=== PATIENT | female | born 1980 | race Caucasian/White ===

== ENCOUNTER 2016-12-05 08:12 | Outpatient (CLI) | payer SELFPAY ==
[2016-12-05 08:35] VITALS: BP 104/79
[2016-12-05] MEDS ORDERED: LACTATED RINGERS 1,000 ML ONE (08:40)
[2016-12-05] MEDS ORDERED: D5LR 1,000 ML IV ONE (09:26)
== END 2016-12-05 11:15 | disposition home or self-care (01) ==
LOC: TRG 08:12
PROVIDERS: ATTEND Specialist
DX: O47.1 False labor at or after 37 completed weeks of gestation (principal); Z3A.39 39 weeks gestation of pregnancy
CPT/HCPCS: 59025; 82962; J7120; J7121

== ENCOUNTER 2016-12-05 18:34 | Inpatient (IN) | payer OTHER ==
[2016-12-05] MEDS ORDERED: LACTATED RINGERS 1,000 ML ONE (18:38)
--- NOTE | 2016-12-05 20:00 | History and Physical Report ---
History of Present Illness Date of examination: 12/05/16 Date of admission: 12/05/16 18:56 Chief complaint: My water broke History of present illness: Patient is a 35 year old who presents in active labor with ROM. Patient is a previous times 1, followed by a successful . Patient received care at [facility]. Past History Past Medical History: no pertinent history Past Surgical History: section Social history: - Obstetrical History Expected Date of Delivery: 12/09/16 Actual Gestation: 39 Week(s) 3 Day(s) : 3 Para: 2 Number of Living Children: 2 Medications and Allergies Allergies Allergy/AdvReac Type Severity Reaction Status Date / Time Penicillins Allergy Severe Rash Verified 12/05/16 08:19 Home Medications Medication Instructions Recorded Confirmed Last Taken Type Omeprazole [PriLOSEC] 20 mg PO QDAY 04/27/14 04/27/14 04/26/14 08:00 History PHENObarb/HYOSCY/ATROPINE/SCOP 1 tab PO QDAY 04/27/14 04/27/14 04/23/14 09:00 History [] Review of Systems All systems: negative Genitourinary: leakage of fluid, contractions - Vital Signs Vital signs: Vital Signs Pulse Pulse Ox 99 H 98 12/05/16 19:25 12/05/16 19:25 Temp Pulse Resp BP Pulse Ox 91 H 118/71 94 12/05/16 19:31 12/05/16 19:29 12/05/16 19:31 - Physical Exam Breasts: Cardiovascular: Regular rate, Normal S1, Normal S2 Lungs: Positive: Clear to auscultation, Normal air movement Abdomen: Positive: normal appearance, soft, normal bowel sounds. Negative: distention, tenderness Genitourinary (Female): Positive: normal external genitalia, normal perenium Vulva: both: normal Vagina: Positive: normal moisture. Negative: discharge Cervix: Negative: lesion, discharge Uterus: Positive: normal size, normal contour Adnexa: both: normal Anus/Rectum: Positive: normal perianal skin, heme negative. Negative: rectal mass, hemorrhoids Extremities: Deep Tendon Reflex Grade: Normal +2 - Obstetrical Cervical Dilatation: 7 Cervical Effacement Percentage: 100 station: -1 Uterine Contraction Pattern: Regular Uterine Tone Measurement Phase: Contraction Uterine Contraction Intensity: Moderate Results All other labs normal. Assessment and Plan IUP at 39.3 who presents in active labor for a . Admit for labor. AROm. Augment. Anticipate successful .
[2016-12-05] MEDS ORDERED: STADOL IV PRN (20:03)
[2016-12-05] MEDS ORDERED: ePHEDrine SULFATE IV PRN ×2 (20:03→22:03)
[2016-12-05] MEDS ORDERED: BRETHINE SUB-Q PRN (20:03)
[2016-12-05] MEDS ORDERED: SUBLIMAZE IV PRN (20:03)
[2016-12-05] MEDS ORDERED: PHENERGAN PO PRN (20:03)
[2016-12-05] MEDS ORDERED: BRETHINE IVP PRN (20:03)
[2016-12-05] MEDS ORDERED: MINERAL OIL PO PRN (20:03)
[2016-12-05 20:24] LABS: Hematocrit 35.3 % (30.3-42.9); Hemoglobin 11.1 gm/dl (10.1-14.3); Mean Corpuscular HGB Conc 32 % (30-34); Mean Corpuscular Hemoglobin 28 pg (28-32); Mean Corpuscular Volume 90 fl (79-97); Platelet Count 276 K/mm3 (140-440); Red Blood Count 3.93 M/mm3 (3.65-5.03); Red Cell Distribution Width 15.9 % (13.2-15.2)
[2016-12-05] MEDS ORDERED: PITOCin/NS 30 UNIT/500ML 30 UNITS/500 ML BAG IV SCH ×2 (21:00)
[2016-12-05] MEDS ORDERED: PITOCin/NS 20 UNIT/1000ML DRIP 20 UNITS/1,000 ML BAG IV SCH ×2 (21:00→23:45)
[2016-12-05] MEDS: LACTATED RINGERS 1,000 ML IV SCH ×2 (21:02→22:34)
[2016-12-05] MEDS ORDERED: ePHEDrine SULFATE ONE (21:04)
--- NOTE | 2016-12-05 21:35 | Event Note ---
Date: 12/05/16 Patient made change to 7 cm and has been at same dilation for past 2 hours. Patient advised of need for but patient refused. 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 Patient wants to get epidural to see if it helps with dilation.
[2016-12-05] MEDS ORDERED: NARCAN 2 MG/2 ML IV PRN (22:03)
--- NOTE | 2016-12-05 22:03 | Anesthesia Consultation ---
Anesthesia Consult and Med Hx Date of service: 12/05/16 - Airway Anesthetic Teeth Evaluation: Good ROM Head & Neck: Adequate Mental/Hyoid Distance: Adequate Mallampati Class: Class II Intubation Access Assessment: Probably Good - Pulmonary Exam CTA: Yes - Cardiac Exam Cardiac Exam: RRR - Pre-Operative Health Status ASA Pre-Surgery Classification: ASA2 Proposed Anesthetic Plan: Epidural, Spinal - Pulmonary Hx Smoking: No Hx Asthma: No COPD: No Hx Pneumonia: No - Cardiovascular System Hx Hypertension: No - Central Nervous System Hx Seizures: No Hx Psychiatric Problems: No - Endocrine Hx Renal Disease: No Hx End Stage Renal Disease: No Hx Hypothyroidism: No Hx Hyperthyroidism: No - Hematic Hx Anemia: No Hx Sickle Cell Disease: No - Other Systems Hx Alcohol Use: No Hx Obesity: Yes - Additional Comments Anesthesia Medical History Comments: + at 38.4
[2016-12-05] MEDS ORDERED: fentaNYL-BUPIV 2 MCG/ML-0.125% 200 MCG/100 ML BAG EPIDURAL SCH (23:00)
[2016-12-05] MEDS ORDERED: XYLOCAINE MPF 2% ONE (23:03)
[2016-12-05] MEDS ORDERED: BICITRA PO ONE (23:05)
[2016-12-05] MEDS ORDERED: PEPCID IV ONE (23:05)
[2016-12-05] MEDS ORDERED: REGLAN IV ONE (23:05)
--- NOTE | 2016-12-05 23:05 | Event Note ---
Date: 12/05/16 Patient still with no cervical change despite adequate contractions and now with epidural. Will proceed with .
[2016-12-05] MEDS ORDERED: ZOFRAN IV ONE (23:13)
--- NOTE | 2016-12-05 23:28 | Event Note ---
Date: 12/05/16 called due to arrest of descent, however patient is still refusing to sign consent forms despite understanding. made aware as well as the nursing field pipe lines supervisor. Per Dr. Vaughn, Cable Television Installer from [facility] de will call to speak to patient.
[2016-12-05] MEDS ORDERED: LACTATED RINGERS 1,000 ML IV SCH (23:45)
[2016-12-05] MEDS ORDERED: CLEOCIN 600 MG/50 mL 600 MG/50 ML BAG IV NR (23:45)
--- NOTE | 2016-12-06 00:16 | Event Note ---
Date: 12/06/16 AFter lengthy conversation with patient with on line csr, Cherry, on the line from [facility], explained that patient was now in arrest of labor and has fallen off of labor curve. Patient's wolfe are ruptured and she has epidural, however patient was offered to sign out against Medical Advice if she continues to refuse recommended care. Patient verbalized understanding with on line csr on the line. Patient became visually upset but still refused to consent to . Dr. Portillo made aware and advised to contact risk management as well as have the patient sign notification that she understands risks and benefits of her decision.
[2016-12-06] MEDS ORDERED: MARCAINE-EPI/PF 0.5%-1:200,000 INFILTRATI ONE (02:04)
[2016-12-06] MEDS ORDERED: METHERGINE IM ONE ×2 (03:55)
--- NOTE | 2016-12-06 04:15 | Procedure Note ---
OB Delivery Note - Delivery Date of Delivery: 12/06/16 Surgeon: DYAN SANDS Estimated blood loss: 500cc - Vaginal Delivery presentation: vertex Delivery position: OA Intrapartum events: 2ndary arrest of dilation Delivery induction: none Delivery augmentation: pitocin Delivery monitor: external FHT, external uterine Route of delivery: Delivery placenta: spontaneous Delivery cord: 3 umbilical vessels Delivery laceration: 1st degree Delivery repair: vicryl Anesthesia: epidural Delivery comments: Viable male delivered over intact perineum. Mouth and nose suctioned. Loose nuchal cord easily reduced on field. weight 8 pounds 1 ounce. Apgars 7,9. Placenta delivered spontaneously and intact with 3vc. Small vaginal laceration repaired with 2.0 vicryl. Patient tolerated procedure well.
[2016-12-06] MEDS ORDERED: MILK OF MAGNESIA PO PRN (04:16)
[2016-12-06] MEDS ORDERED: ZOFRAN IV PRN (04:16)
[2016-12-06] MEDS ORDERED: DERMOPLAST TP PRN (04:16)
[2016-12-06] MEDS ORDERED: PHENERGAN PO PRN (04:16)
[2016-12-06] MEDS ORDERED: PHENERGAN PR PRN (04:16)
[2016-12-06] MEDS ORDERED: LANSINOH TP PRN (04:16)
[2016-12-06] MEDS ORDERED: DULCOLAX PR PRN (04:16)
[2016-12-06] MEDS ORDERED: TUCKS PAD TP PRN (04:16)
[2016-12-06] MEDS ORDERED: BENADRYL PO PRN (04:16)
[2016-12-06] MEDS ORDERED: TYLENOL PO PRN (04:16)
[2016-12-06] MEDS ORDERED: SODIUM CHLORIDE FLUSH SYRINGE 10 ML IV NR (05:00)
[2016-12-06] MEDS: MOTRIN PO SCH ×2 (07:21→18:10)
[2016-12-06] MEDS: COLACE PO SCH ×2 (10:28→22:00)
[2016-12-06] MEDS: PRENATAL VITAMIN PO SCH (10:28)
[2016-12-06 16:14] LABS: Hematocrit 28.7 % (30.3-42.9); Hemoglobin 8.9 gm/dl (10.1-14.3)
[2016-12-07 01:31] LABS: Hematocrit 28.2 % (30.3-42.9)
[2016-12-07] MEDS: MOTRIN PO SCH ×3 (01:35→17:41)
[2016-12-07] MEDS ORDERED: M-M-R II VACCINE SUB-Q ONE (06:00)
[2016-12-07] MEDS: NORCO 5/325 PO PRN ×2 (06:13→20:26)
[2016-12-07] MEDS: PRENATAL VITAMIN PO SCH (12:00)
[2016-12-07] MEDS: COLACE PO SCH ×2 (12:00→22:19)
[2016-12-08] MEDS: MOTRIN PO SCH ×2 (00:15→00:22)
--- NOTE | 2016-12-08 09:07 | Discharge Summary ---
Providers - Providers Date of Admission: 12/05/16 18:56 Date of discharge: 12/08/16 Attending physician: ZHANNA CORTES Primary care physician: ZHANNA CORTES Hospitalization Reason for admission: active labor Delivery: Procedure details: s/p Episiotomy: none Laceration: 1st degree Other procedures: none complications: none Discharge diagnosis: IUP at term delivered [place] baby: male Hospital course: routine pp course. Condition at discharge: Good Disposition: DISCHARGED TO HOME OR SELFCARE - Discharge Diagnoses (1) Status post normal vaginal delivery Status: Acute (2) Anemia Status: Acute Qualifiers: Anemia type: A Iron deficiency anemia type: I Vitamin B12 deficiency anemia type: V Folate deficiency anemia type: F Bone marrow failure anemia type: B Hemolytic anemia type: H Other causes of anemia: O Comment: secondary to the blood loss of delivery Plan - Discharge Medications Prescriptions: Ferrous Sulfate [Feosol 325 MG tab] 325 mg PO BID #60 tablet HYDROcodone/APAP 5-325 [[place] 5-325 mg TAB] 2 each PO Q6H PRN #30 tablet PRN Reason: Pain, Moderate (4-6) Ibuprofen [Motrin 600 MG tab] 600 mg PO Q6H #30 tablet - Provider Discharge Summary Activity: routine, no sex for 6 weeks, no heavy lifting 4 weeks, no strenuous exercise Diet: routine Instructions: routine Additional instructions: [] Smoking cessation referral if applicable(refer to patient education folder for contact #) [] Refer to [facility] Booklet Call your doctor immediately for: * Fever > 100.5 * Heavy vaginal bleeding ( >1 pad per hour) * Severe persistent headache * Shortness of breath * Reddened, hot, painful area to leg or breast * Drainage or odor from incision. * Keep incision clean and dry at all times and follow doctor's instructions regarding bathing/showering - Follow up plan Follow up: ZHANNA CORTES MD [Primary Care Provider] - 6 Weeks
[2016-12-08 15:27] VITALS: BP 110/50
== END 2016-12-08 13:50 | disposition home or self-care (01) | DRG 775 ==
LOC: TRG 18:34 → LD 18:56 → OB 12-06 05:55
PROVIDERS: ADMIT Specialist; ATTEND Specialist
PROC: 10E0XZZ Delivery of Products of Conception, External Approach (ICD-10-PCS; principal; 2016-12-06)
PROC: 0HQ9XZZ Repair Perineum Skin, External Approach (ICD-10-PCS; 2016-12-06)
PROC: 3E0S3CZ (ICD-10-PCS; 2016-12-06)
PROC: 00HU33Z Insertion of Infusion Device into Spinal Canal, Percutaneous Approach (ICD-10-PCS; 2016-12-06)
DX: O69.81X0 Labor and delivery complicated by cord around neck, without compression, not applicable or unspecified (principal); D62 Acute posthemorrhagic anemia; O34.219 Maternal care for unspecified type scar from previous cesarean delivery; O70.0 First degree perineal laceration during delivery; Z3A.39 39 weeks gestation of pregnancy; O09.523 Supervision of elderly multigravida, third trimester; Z37.0 Single live birth; Z88.0 Allergy status to penicillin; O90.81 Anemia of the puerperium
CPT/HCPCS: 36415; 85014; 85018; 85027; 86850; 86900; 86901; 99211; G0463; J2210; J2405; J2590; J3010; J7120